=== PATIENT | male | born 1980 | race American Indian/Alaskan Native ===

== ENCOUNTER 2020-02-02 13:54 | Emergency (ER) | payer SELFPAY ==
[2020-02-02 14:12] VITALS: BP 112/72
--- NOTE | 2020-02-02 15:16 | XRay Report ---
Left knee-3 views INDICATION: left knee injury. COMPARISON: None. IMPRESSION: Small suprapatellar effusion. No acute fracture or malalignment. No significant DJD. Signer Name: Dudley Cisse MD Signed: 02/02/2020 3:11 PM Workstation Name: [id number]
== END 2020-02-02 16:23 | disposition home or self-care (01) ==
LOC: ED 13:54
DX: M25.562 Pain in left knee (principal)
CPT/HCPCS: 99283